=== PATIENT | male | born 1945 | race Caucasian/White ===

== ENCOUNTER 2024-03-10 14:04 | Outpatient (CLI) | payer OTHER, SELFPAY | END 2024-03-10 14:05 | disposition home or self-care (01) | LOC: LKVREF 14:04 | PROVIDERS: Visit Provider Physician Assistant | DX: R21 Rash and other nonspecific skin eruption (principal); W57.XXXA Bitten or stung by nonvenomous insect and other nonvenomous arthropods, initial encounter; Z11.9 Encounter for screening for infectious and parasitic diseases, unspecified | CPT/HCPCS: 86618 ==